=== PATIENT | male | born 1955 | race Caucasian/White ===

== ENCOUNTER → 2017-01-17 | Outpatient (CLI) | payer BC ==
[~2017-01-17] MED LIST: ASPI81TA28 PO; CYCL0.05 OP; DIPH25CA65 PO; FEXO1TAB49 PO; OMEG10007 PO
[2017-01-17 12:57] LABS: CHOLESTEROL/HDL RATIO 2.9
== END | disposition home or self-care (01) ==
LOC: C.LAB1850 09:41
PROVIDERS: ATTEND Internal Medicine Cardiovascular Disease
DX: E78.5 Hyperlipidemia, unspecified (principal)

== ENCOUNTER → 2018-04-10 | Outpatient (CLI) | payer OTHER ==
--- NOTE | 2018-04-10 11:25 | DIAGNOSTIC IMAGING REPORT ---
ABDOMEN LIMITED (US) HISTORY: Pain. Nodule. ABD MASS RLQ. COMPARISON: None. FINDINGS: Ultrasound evaluation of the right inguinal region shows no evidence for DETECTABLE MASS OR COLLECTION. IMPRESSION: No significant abnormality identified within the within the right lower quadrant or inguinal region. The above report was generated using voice recognition software. It may contain grammatical, syntax or spelling errors. Electronically signed by: Brandan Dewitt M.D. 04/10/2018 11:23 AM Dictated Date/Time: 04/10/2018 11:21 AM
== END | disposition home or self-care (01) ==
LOC: C.ULTR 10:37
PROVIDERS: ATTEND Family Medicine
DX: R19.03 Right lower quadrant abdominal swelling, mass and lump (principal)